=== PATIENT | female | born 1945 | race Caucasian/White ===

== ENCOUNTER 2025-04-01 12:44 | Outpatient (AMB) | payer MEDICARE, OTHER, SELFPAY ==
--- NOTE | 2025-04-01 12:47 | A.OFFVIS_ITS ---
Vital Signs 04/01/25 12:48 Height 5 ft 4 in Weight 103 lb 9.876 oz BMI 17.8 BP 110/60 Blood Pressure Location Lt brachial Position Sitting Pulse 70 Pulse Source Monitor Intake Visit Reasons: [employer]/Dr. Fleming/Cardiac arrhythmia Allergies No Known Allergies Allergy (Verified 04/01/25 12:54) Medication List - Last Reconciled 04/01/25 by Manuel Griffith MD No Known Home Meds HPI Comments Details: The patient is a 79-year-old female presenting with concerns regarding abnormal electrocardiogram findings and significant weight loss. The patient reports that her primary care physician detected an abnormality in her heart sounds, prompting further investigation. She has experienced a weight loss of approximately 15 pounds over the past six months, with her weight dropping to as low as 99 pounds. The patient attributes this weight loss to anxiety related to her son's situation, which has led to a decreased appetite. She denies any history of heart disease, heart attacks, or stent placements. The patient remains physically active, able to walk, ride a bicycle, and climb stairs without experiencing chest pain or pressure. However, she occasionally experiences palpitations, described as her heart racing or thumping hard, but these episodes are brief. There is a significant family history of heart disease, with her father, mother, and both grandfathers having suffered heart attacks. [facility] Family History (Updated 04/01/25 @ 12:56 by Verna Jacobsen) Mother Heart attack Father Heart attack Maternal Grandfather Heart attack Paternal Grandfather Heart attack Social History (Updated 04/01/25 @ 12:57 by Verna Jacobsen) Alcohol intake: current Alcohol intake frequency: a few times a week Alcohol type: beer Patient Tobacco Use Status: Never used Tobacco Review of Systems Const Denies weakness ENT Denies dizziness Card Denies chest pain, Denies chest pain with activity, Denies syncope, Denies rapid heart rate, Denies pedal edema, Denies edema, Denies leg edema, Denies lightheadedness, Reports palpitations, Denies dyspnea, Denies dyspnea on exertion and Denies orthopnea Resp Denies cough, Denies dyspnea and Denies dyspnea on exertion GI Denies hematochezia and Denies change in stool character Musc Denies abnormal gait, Denies muscle cramps, Denies muscle weakness, Denies numbness, Denies radiating pain into limb and Denies tingling Neuro Denies abnormal gait, Denies dizziness, Denies syncope, Denies numbness, Denies tingling and Denies weakness Endo Reports palpitations Physical Exam Vital Signs: Last Vital Signs Pulse 70 04/01/25 12:48 BP 110/60 04/01/25 12:48 BMI result Body Mass Index 17.8 Const General: comfortable and no acute distress Orientation/consciousness: patient oriented x3 HEENT Other: Unremarkable Head: Yes normal to inspection Neck Neck: Yes normal visual inspection Chest Chest palpation & inspection: normal inspection of the chest Resp Auscultation: clear to auscultation bilaterally Cardio Palpation: normal PMI Heart sounds: S1 normal heart sound present, S2 normal heart sound present, no gallops, no murmurs and no rubs GI Palpation (GI): Soft to palpation Back/Spine/Pelvis Other: unremarkable Skin General skin exam: no rashes or lesions noted Neuro General: patient oriented x3 Extrem General: Yes normal to inspection Psych Mental Status: mental status grossly normal Office Procedures EKG Details: EKG with underlying sinus rhythm, sinus arrhythmia, PACs, inferior and anterolateral ST depression; [place] [address]-[id number], Complete Assessment & Plan Assessment & Plan (1) Abnormal EKG: Code(s): R94.31 - Abnormal electrocardiogram [ECG] [EKG] Category: Medical Plan Abnormal EKGs as described above but no accompanying cardiovascular symptoms. She needs evaluation for obstructive CAD. No overt valvular findings on exam. We will start with an echocardiogram and exercise stress perfusion imaging study. Based on the findings, we will decide if she needs a diagnostic catheterization. We will also try to see if there is any old EKG from PCP for comparison. Discussion Notes I discussed with the patient the abnormal findings on her electrocardiogram and the need for further evaluation to rule out any potential cardiac issues. We talked about the importance of undergoing an echocardiogram and a stress test to better understand her heart's condition. I reassured her that despite the abnormal EKG, her lack of symptoms such as chest pain is a positive sign, but further investigation is necessary to ensure her heart health. Patient was informed and verbally consented to the use of an ambient scribe for clinic note documentation during this visit. 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 - Monitor for any new symptoms such as chest pain or changes in exercise tolerance and report them immediately. - Maintain a healthy lifestyle and manage stress to support overall heart health. Coding Level of Care Code New Pt Level 4 (28192) Complex EM visit Add On G2211 Diagnoses Abnormal EKG R94.31 CPT Codes EKG - CPT: 94404-[id number], Complete ([id number])
--- OUTSIDE RECORDS SUMMARY | 2025-04-01 12:47 | XMS_ITS | Clinical Summary ---
Author Organization [facility] Address [address] [place] [address] [place] [phone] Phone Care Team Providers Care Streetcar Motorman Name Role Phone Rain Rand PA-C Unavailable [phone] Laurel Fleming MD Primary Care Provider [phone] Laurel Fleming MD Unavailable Allergies No known active allergies Medications cephalexin (KEFLEX) 500 MG capsule Take 1 capsule (500 mg total) by mouth 3 (three) times a day. 21 capsule 02/21/2025 Active Active Problems Problem Noted Date Diagnosed Date Pelvic pain 11/26/2024 Assessment & Plan (11/26/2024 11:41 AM EDT): Exam is entirely benign. Based on her symptoms I think we should get a pelvic ultrasound. Also rule out UTI. We will follow-up closely. Cardiac arrhythmia 11/26/2024 Assessment & Plan (11/26/2024 11:39 AM EDT): Notable heave which makes me concerned for RVH, the EKG does not distinctly show RVH. I am going to get a chest x-ray to evaluate for any cardiac enlargement. She does not have any chest pain or palpitations or shortness of breath. Referral to cardiology also placed. Weight loss 11/26/2024 Assessment & Plan (11/26/2024 11:40 AM EDT): Unexplained weight loss with thus far a negative laboratory workup. She has not had any imaging, but metabolic causes appear to have been ruled out. I am going to repeat her blood panel, thyroid and get a chest x-ray. 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 DISCUSSION: I discussed overall impression, differential diagnosis and further management in this regard. Patient underwent extensive laboratory evaluation which came back unremarkable. Patient is aware of this diagnosis for over 10 years. Her blood work has been stable over this time. The fact that rest of the CBC has been unremarkable is reassuring and speaks against any underlying hematological disease/bone marrow disease process. RECOMMENDATIONS: No further hematology follow-up is necessary at this time in this regard Thank you very much for allowing to participate in this patient's care Median neuropathy of both upper extremities 02/20 Overview (07/25/2023): Last Assessment & Plan: Patient with a few months of intermittent hand numbness and paresthesias which can wake her from sleep and be associated with a burning sensation. This is also provoked by certain wrist positions and activities and is clinically suggestive of carpal tunnel syndrome. EMG today confirms evidence of bilateral moderately severe median neuropathies at the wrists, which is worse on the right. 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 Encounters Date Type Department Care Team Description 02/21/2025 4:20 PM EDT Office Visit [facility] [address] [place] [address] Laurel Fleming MD Dysuria (Primary Dx) 02/05/2025 6:50 PM EDT Office Visit [facility] at [address] [place] [address] Alexa Porter, JORDAN Dysuria (Primary Dx); Acute cystitis with hematuria from Last 3 Months Immunizations Immunization Administration Dates Next Due Influenza High-Dose Quadrivalent Preservative Fr ee IM 06/09/2023 Influenza Trivalent Adjuvanted Preservative free IM 05/15/2024 Pneumococcal conjugate PCV20 01/24/2024 RSV Vaccine (monovalent, adjuvanted) 08/02/2023 Tdap 05/15/2024 Zoster recombinant 07/03/2024 Family History Medical History Relation Comments Heart attack Father Rheumatic fever Father Heart attack Maternal Grandfather Heart attack Mother Heart attack Paternal Grandfather Dementia Sister vascular Breast cancer Neg Hx Relation Status Comments Brother Alive Father Maternal Grandfather Mother Paternal Grandfather Sister Social History Tobacco Use Types Packs/Day Years Used Date Smoking Tobacco: Never Passive Smoke Exposure: Never Smokeless Tobacco: Never Alcohol Use Standard Drinks/Week Comments Yes 4 (1 standard drink = 0.6 oz pur e alcohol) occasionally Child or Family Care Answer Date Record ed Do you have problems with on e of the following making it difficult for you to work, study, or receive health care? No 01/17/2024 Education Answer Date Recorded Are you interested in more education? Not on kathi e 01/27/2023 Are you concerned about learning? Not on file 01/27/2023 No 01/27/2023 No 01/27/2023 Food Answer Date Recorded Within the past 6 months we worried whether our food would run out before we got money to buy more. Never True 01/17/2024 Within the past 6 months the food we bought just didn't last and we didn't have enough money to get more. Never True Residential Stability Answer Date Recor ded What is your housing situation today? I have timur sing 01/17/2024 How many times have you moved in the past 12 mon ths? One time 01/17/2024 Paying for Meds Answer Date Recorded Do you have trouble paying for medicines? No 01/17/2024 Paying Utility Bills Answer Date Record ed Do you have trouble paying your heating or elect ricity bill? No 01/17/2024 Transportation Answer Date Recorded Has the lack of transportati on kept you from medical appointments or from getting medications? No 01/17/2024 Digital Access Answer Date Recorded No 01/17/2024 Yes 01/17/2024 Reliable internet access at home? Not on file 01/17/2024 Do you have a device (e.g., phone, tablet, computer) with a working camera? Yes 01/17/2024 Intimate Partner Violence Answer Date R ecorded Denied Basic Needs Not on file 07/18/2023 In the past 12 months have y ou been in a relationship with a person who hurts, threatens, or tries to control you? No 07/18/2023 Worried food would run out Not on file 07/18 In the past 12 months have y ou been in a relationship with a person who hurts, threatens, or tries to control you? No 07/18/2023 Comments No Sex and Gender Information Value Date Recorded Sex Assigned at Female 07/25/2023 1:10 PM EST Legal Sex Female 11:21 AM EDT Gender Identity Female 07/25/2023 1:10 PM EST Sexual Orientation Straight 07/25/2023 1: 10 PM EST Last Filed Vital Signs Vital Sign Reading Time Taken Comments Blood Pressure 120/68 02/21/2025 4:04 PM EDT Pulse 77 02/21/2025 4:04 PM EDT Temperature 36.1 C (97 F) 02/05/2025 7:10 PM EDT Respiratory Rate 20 02/05/2025 7:10 PM EDT Oxygen Saturation 98% 02/21/2025 4:04 PM EDT Inhaled Oxygen Concentration - - Weight 47.6 kg (105 lb) 02/05/2025 7:10 PM EDT Height 162.6 cm (5' 4 ) 02/05/2025 7:10 PM EDT Body Mass Index 18.02 02/05/2025 7:10 PM EDT Plan of Treatment Health Maintenance Due Date Last Done Comments HEPATITIS C SCREENING 1963 ZOSTER VACCINES (2 of 2) 08/28/2024 07/03/2024 COVID-19 VACCINE (3 - 2023-2 5 season) 2024 05/15/2024, 06/14/2023 DEPRESSION SCREENING 02/21/2026 02/21/2025, 02/21/2025 LIPID PANEL 08/05/2028 08/05/2023 Adult Td,Tdap Booster 05/15/2034 05/15/2024 RSV VACCINE Completed 08/02/2023 PNEUMOCOCCAL VACCINES (50+ years) Completed 01/24/2024 OSTEOPOROSIS SCREENING INITI AL (ONE-TIME) Completed 11/26/2024 SMOKING STATUS SCREENING (On ce After 26 Yrs) Completed 02/05/2025 HEPATITIS A VACCINES Aged Out No long er eligible based on patient's age to complete this topic HIB VACCINES Aged Out No longer eligi ble based on patient's age to complete this topic MENINGOCOCCAL VACCINES (ACWY) Aged Out No longer eligible based on patient's age to complete this topic MENINGOCOCCAL VACCINES (B) Aged Out N o longer eligible based on patient's age to complete this topic Medical Devices Not on file Procedures Procedure Name Priority Date/Time Associated Diagnosis Comments URINE CULTURE Routine 02/21/2025 4:39 PM EDT Dysuria POCT URINE DIPSTICK Routine 02/21/2025 4 :08 PM EDT URINE CULTURE Routine 02/05/2025 7:15 PM EDT Acute cystitis with hematuria Dysuria POCT URINE DIPSTICK Routine 02/05/2025 7 :07 PM EDT BD DXA AXIAL (SPINE) WITH HIP Routine 11/26/2024 3:27 PM EDT Osteoporosis screening LIPID PANEL Routine 08/05/2023 9:18 AM EST Lipid screening from Last 3 Months or Most Recently Relevant to Health Maintenance Results * (ABNORMAL) Urine Culture (02/21/2025 4:39 PM EDT) Only the most recent of2 resultswithin the time period is included. Special Requests None 02/21/2025 4:39 PM EDT [facility] Urine Culture 10,000 to 100,000 colony forming units per mL MIXED DUANE (3 OR MORE COLONY TYPES) Culture indicates contamination . Please resubmit if necessary.(A) 02/23/2025 7:46 AM EDT [facility] Urine (Urine) 02/21/2025 4:3 9 PM EDT 02/21/2025 6:04 PM EDT us Laurel Fleming MD MICROBIOLOGY - GENERAL ORDERABLE S Final Result Performing Organization Address [facility] Co de Phone Number [facility] [address] [place] [address] * (ABNORMAL) POCT Urine Dipstick (Automated) (02/21/2025 4:08 PM EDT) Only the most recent of2 resultswithin the time period is included. COLOR DK YELLOW [facility] TURBIDITY CLOUDY [facility] GLUCOSE, POCT Negative Negative [facility] KETONE, POCT Negative Negative [facility] OCCULT BLOOD, POCT Negative Negative [facility] SPECIFIC GRAVITY, POCT >1.030 1.001 - 1.030 [facility] ALBUMIN, POCT Negative Negative [facility] Bili Negative Negative [facility] Urobilinogen 0.2 <1.0 [facility] NITRITE, POCT Negative Negative [facility] PH, POCT 5.5 5.0 - 8.0 [facility] WBC SCREEN, POCT Trace(A) Negative [facility] 02/21/2025 4:08 PM EDT 02/21/2025 4:11 PM EDT us Laurel Fleming MD POINT OF CARE TEST ORDERABLES Fi nal Result Performing Organization Address [facility] Co de Phone Number [facility] [address] [place], [place] [id number] [place] [address] * BD DXA AXIAL (SPINE) WITH HIP (11/26/2024 3:27 PM EDT) Anatomical Region Laterality Modality Bone Density Bone Density 11/26/2024 3:16 PM EDT Impressions 11/27/2024 8:20 AM EDT Interpretation: Osteopenia. Narrative 11/27/2024 8:20 AM EDT Referred By: JUDY GODINEZ Indications: Postmenopausal and Estrogen Deficiency Scanner: TLM Com A with serial# of [id number] located at [facility] Bone Density Scan (DXA) 11/26/24 Details of prior DXA scans are available by clicking View Full Report BMD T- Z- Skeletal Site gm/cm2 score score BMD Change Since Prior Scan ------ ----- ----- PA Spine (L1-L4) 0.975 -0.70 1.90 N/A Total Hip (Left) 0.774 -1.40 0.50 N/A Femoral Neck (Left) 0.682 -1.50 0.70 N/A ------ ----- ----- * Denotes significant change when >= 0.022 g/cm2 for the spine, 0.027 g/cm2 for the total hip, 0.029 g/cm2 for the femoral neck. Interpretation: Osteopenia. Technical Quality: Imaging of all sites was of adequate quality. FRAX: Based on FRAX(r) 3.6 ([place] White female), this patient's likelihood of hip fracture is 9.5% and major osteoporotic fracture is 17.2% over the next 10 years. The patient reported the following risks of fracture on a questionnaire: parental history of hip fracture. Reviewed By: Adin Lagunas MD on 11/27/2024 08:20:02 Additional Information: -World Health Organization criteria classify adults based on lowest T-score at PA spine, hip or forearm: Normal (T-score >= -1.0), Osteopenia (T-score between -1 and -2.5), or Osteoporosis (T-score <= -2.5). At [facility], T-scores are compared to peak bone density of a young white gender matched reference population. - For premenopausal women and men under the age of 50, Z-scores (comparison to age, gender, and ethnicity matched reference population) are used: Above expected range for age (Z-score >= 2.0), Within expected range of age (Z-score 1.9 to -1.9), or Below expected range for age (Z-score <= -2.0). - The Bone Health and Osteoporosis Foundation recommends that treatment be considered in men aged more than 50 years and in postmenopausal women with ANY of the following: Prior hip or vertebral fractures; T-score of <= -2.5 at the PA spine or hip; or 10 year fracture probability by FRAX of >= 3% for the hip or >= 20% for major osteoporotic fracture. - The FRAX algorithm (https://www.blanquita.ac.uk/FRAX/tool.aspx) is designed to predict 10-year fracture risk in treatment-naive adults between the ages of 40 and 90. It is not intended to be used in those receiving pharmacologic osteoporosis treatment. - The TBS is derived from the texture of the DXA spine image and has been shown to be related to bone microarchitecture and fracture risk. This data provides information independent of BMD value. It adds to fracture risk assessment with a FRAX adjusted for TBS score. If your patient had a TBS and qualified for a FRAX score, the reported FRAX score has been adjusted for TBS. TBS Score Interpretation 1.350 and greater Normal bone microarchitecture 1.200 to 1.350 Partially degraded bone microarchitecture 1.200 and less Degraded bone microarchitecture - Including race/ethnicity in the generation of T- or Z-scores or in the FRAX calculation is complicated, and currently undergoing active review to ensure that we can give patients the best information on their risk of fracture. - Some prior studies may not be compatible with our comparison software. - Click on View Full Report to see subsequent pages with images and prior bone density results. Procedure Note Adin Lagunas MD - 11/27/2024 Referred By: JUDY GODINEZ Indications: Postmenopausal and Estrogen Deficiency Scanner: TLM Com A with serial# of [id number] located at [facility] Bone Density Scan (DXA) 11/26/24 Details of prior DXA scans are available by clicking View Full Report BMD T- Z- Skeletal Site gm/cm2 score score BMD Change Since Prior Scan ------ ----- PA Spine (L1-L4) 0.975 -0.70 1.90 N/A Total Hip (Left) 0.774 -1.40 0.50 N/A Femoral Neck (Left) 0.682 -1.50 0.70 N/A ------ ----- * Denotes significant change when >= 0.022 g/cm2 for the spine, 0.027g/cm2 for the total hip, 0.029 g/cm2 for the femoral neck. Interpretation: Osteopenia. Technical Quality: Imaging of all sites was of adequate quality. FRAX: Based on FRAX(r) 3.6 ([place] White female), this patient's likelihoodof hip fracture is 9.5% and major osteoporotic fracture is 17.2% over thenext 10 years. The patient reported the following risks of fracture on a questionnaire: parental history of hip fracture. Reviewed By: Adin Lagunas MD on 11/27/2024 08:20:02 Additional Information: -World Health Organization criteria classify adults based on lowestT-score at PA spine, hip or forearm: Normal (T-score >= -1.0), Osteopenia (T-score between -1 and -2.5), or Osteoporosis (T-score <= -2.5). At [facility], T-scores are compared to peak bone density of a young white gender matched reference population. - For premenopausal women and men under the age of 50, Z-scores(comparison to age, gender, and ethnicity matched reference population) are used:Above expected range for age (Z-score >= 2.0), Within expected range of age (Z-score 1.9 to -1.9), or Below expected range for age (Z-score <= -2.0). - The Bone Health and Osteoporosis Foundation recommends that treatment be considered in men aged more than 50 years and in postmenopausal women with ANY of the following: Prior hip or vertebral fractures; T-score of <= -2.5 at the PA spine or hip; or 10 year fracture probability by FRAX of >= 3%for the hip or >= 20% for major osteoporotic fracture. - The FRAX algorithm (https://www.blanquita.ac.uk/FRAX/tool.aspx) is designed to predict 10-year fracture risk in treatment-naive adultsbetween the ages of 40 and 90. It is not intended to be used in those receiving pharmacologic osteoporosis treatment. - The TBS is derived from the texture of the DXA spine image and has been shown to be related to bone microarchitecture and fracture risk. This data provides information independent of BMD value. It adds to fracture risk assessment with a FRAX adjusted for TBS score. If your patient had a TBSand qualified for a FRAX score, the reported FRAX score has been adjusted for TBS. TBS Score Interpretation 1.350 and greater Normal bone microarchitecture 1.200 to 1.350 Partially degraded bone microarchitecture 1.200 and less Degraded bone microarchitecture - Including race/ethnicity in the generation of T- or Z-scores or in the FRAX calculation is complicated, and currently undergoing active review to ensure that we can give patients the best information on their risk of fracture. - Some prior studies may not be compatible with our comparison software. - Click on View Full Report to see subsequent pages with images andprior bone density results. IMPRESSION: Interpretation: Osteopenia. us Judy Godinez SECURITY SHIFT SUPERVISOR IMG BD BONE DENSITY DEXA Fi nal Result * (ABNORMAL) Lipid panel (08/05/2023 9:18 AM EST) HDL 98 mg/dL [facility] Comment: Interpretation <40 mg/dL: Low HDL cholesterol (major risk factor for CHD) Greater than or equal to 60 mg/dL: High HDL cholesterol ( negative risk factor for CHD) HDL - cholesterol is affected by a number of factors, e.g. smoking, excerise, hormones, sex and age. CHOLESTEROL 209 0 - 240 mg/dL [facility] TRIGLYCERIDES 63 30 - 160 mg/dL [facility] LDL 98 50 - 129 mg/dL [facility] Comment: LDL levels in terms of risk for coronary heart disease: <100 mg/dL: Optimal 100-129 mg/dL: Near or above optimal 130-159 mg/dL: Borderline high 160-189 mg/dL: High >190 mg/dL: Very High CARDIAC RISK RATIO 2.1(L) 3.3 - 4.4 C [facility] Blood 08/05/2023 9:18 AM EST 08/05/2023 9:23 AM EST us Judy Godinez SECURITY SHIFT SUPERVISOR LAB BLOOD ORDERABLES Final Result Performing Organization Address City/State/[facility] Co de Phone Number [facility] [address] [place] [address] from Last 3 Months or Most Recently Relevant to Health Maintenance Insurance MEDICARE PART A & B [facility] MEDICARE SUPPLEMENT MEDICARE PART A & B [facility] MEDICARE SUPPLEMENT MEDICARE PART A & B [employer] MEDICARE SUPPLEMENT MEDICARE PART A & B [employer] MEDICARE SUPPLEMENT MEDICARE PART A & B [facility] MEDICARE SUPPLEMENT MEDICARE PART A & B [facility] MEDICARE SUPPLEMENT Care Teams Streetcar Motorman Relationship Specialty Start Date End Date Laurel Fleming MD [address] [place] [phone] PCP - General Family Medicine 10/12/24 Rain Rand PA-C [address] [place] [id number] Physician Sewing Machine Assembler 02/08/24 Laurel Fleming MD [address] [place] [id number] Insurance Assigned Provider 11/25/24 Additional Source Comments The information contained in this document represents components of the legal health record. It is not the complete legal health record.[facility]
[2025-04-01 12:48] VITALS: BP 110/60; PULSE 70; BMI 17.8
== END 2025-04-01 13:35 | disposition home or self-care (01) ==
LOC: HO.HCS 12:45
PROVIDERS: PCP Family Medicine; Visit Provider Internal Medicine
DX: R94.31 Abnormal electrocardiogram [ECG] [EKG] (principal)
CPT/HCPCS: 93010; 99204; G2211

== ENCOUNTER → 2025-04-01 12:44 | Outpatient (BNVA) | payer MEDICARE, OTHER, SELFPAY | PROVIDERS: PCP Family Medicine; Visit Provider Internal Medicine | DX: R94.31 Abnormal electrocardiogram [ECG] [EKG] (principal) | CPT/HCPCS: 93005; 99202 ==

== ENCOUNTER → 2025-04-15 09:49 | Outpatient (REF) | payer MEDICARE, OTHER, SELFPAY ==
--- NOTE | ~2025-04-15 | NM_ITS ---
EXERCISE MYOCARDIAL PERFUSION STUDY INDICATION: Abnormal EKG TECHNIQUE: The patient was brought in for an exercise perfusion study on 04/15/2025. Patient performed exercise as per James protocol and was injected 25 mCi of sestamibi once target heart rate was achieved. Images were obtained using the SPECT gamma camera interlaced with the gating device. Images were obtained in supine position. Resting perfusion study was performed on 04/19/2025. Patient was administered 25 mCi of sestamibi intravenously at rest. Images were then obtained in supine position. Total DLP 68 mGy-cm. Images were processed with the software and compared side to side in short axis, horizontal long axis and vertical long axis views. FINDINGS: Raw aquisition reviewed. The stress perfusion study showed decreased tracer uptake in the basal part of anteroseptal wall. There is improvement with CT attenuation correction and hence could have components of diaphragmatic attenuation artifact. The gated study shows normal LV systolic function with calculated LVEF of 65%. LV cavity is normal in size. The gated study shows decreased thickening in the basal part of inferior septum. Resting study shows mildly reduced tracer uptake in the basal part of inferior septum. No major change with CT attenuation correction. Gating at rest reveals LVEF of 60%. Reduced contractility in the basal inferior septum. The findings are consistent with probable was no defects. Fixed defect in the basal part of inferior septum. NM/NM cardiolite stress test IMPRESSION: 1. Myocardial perfusion imaging study shows no clear evidence of ischemia. Fixed basal inferoseptal defect, which could represent either prior infarct versus artifact. 2. Gated LVEF is 65% during stress and 60% during rest. 3. Transient ischemic dilatation not present. EKG component of the test reported separately. Electronically signed by: Manuel Griffith MD 04/21/2025 12:18 PM EDT
--- NOTE | 2025-04-15 09:54 | CA_ITS ---
Acquisition Time: 2025-04-15 10:17:35 Total Exercise Time: 00:05:20 Test Indications: ABN EKG Medications: SEE H&P Protocol: GENE Max HR: 144 BPM 100% of Pred: 143 BPM Max BP: 164/82 mmHG Max Work Load: 4.6 METS Exercise stress test with exercise 5 mins 20 secs of Gene Protocol held at Stage 1, achieving 97% MPHR, with reports of SOB, no chest pain, with isolated PVCs and frequent PACs with brief 3 beats atrial runs, with normotensive repsonse to exercise. With baseline ST depression inferolaterally and ST elevation in aVR, which became more prominent with exercise, possibly suggestive of ischemia. In recovery, breathing returned to baseline. Nuclear images pending. Test reviewed with Dr. Griffith. Referred By: Manuel Griffith Electronically Signed By: Kt Delacruz
--- OUTSIDE RECORDS SUMMARY | 2025-04-15 10:45 | XMS_ITS | Clinical Summary ---
Author Organization [facility] Address [address] [place] [address] [place] [phone] Phone Care Team Providers Care Web Marketing Intern Name Role Phone Rain Rand PA-C Unavailable [phone] Laurel Fleming MD Primary Care Provider [phone] Laurel Fleming MD Unavailable Allergies No known [...] Encounters Date Type Department Care Team Description 04/09/2025 8:44 AM EDT - 04/09/2025 11:59 PM EDT Hospital Encounter [facility] [address] [place] [address] Laurel Fleming MD Discharge Disposition: Home or Self Care 02/21/2025 4:20 PM EDT Office Visit [facility] [address] [place] [address] Laurel Fleming MD Dysuria (Primary Dx) 02/05/2025 6:50 PM EDT Office Visit [facility] at [address] [place] [address] Alexa Porter CNP Dysuria (Primary Dx); Acute cystitis with hematuria [...] Name Priority Date/Time Associated Diagnosis Comments URINE SEDIMENT Routine 04/09/2025 9:04 AM EDT URINALYSIS W/REFLEX URINE CULTURE Routine 04/09/2025 9:04 AM EDT Pelvic pain URINE CULTURE Routine 02/21/2025 4:39 PM EDT [...] Relevant to Health Maintenance Results * (ABNORMAL) Urinalysis w/reflex Urine Culture (04/09/2025 9:04 AM EDT) COLOR Yellow Yellow [facility] CLARITY Clear [facility] GLUCOSE Negative Negative [facility] BILI Negative Negative [facility] KETONES Negative Negative [facility] SPECIFIC GRAVITY 1.010 1.005 - 1.030 [facility] BLOOD Negative Negative [facility] PH 6.5 5.0 - 8.0 [facility] Protein-UA Negative Negative [facility] NITRITE Negative Negative [facility] Leukocyte esterase, ur Trace(A) Negative [facility] Urine (Urine) 04/09/2025 9:0 4 AM EDT 04/09/2025 9:11 AM EDT us Laurel Fleming MD URINE ORDERABLES Final Result Performing Organization Address City/[facility] Co de Phone Number [address] [address] * (ABNORMAL) Urine sediment (04/09/2025 9:04 AM EDT) WBC 0-4(A) NONE SEEN /hpf [facility] RBC 0-2(A) NONE SEEN /hpf [facility] URINE EPITHELIAL 0-4(A) NONE SEEN [facility] MUCUS Trace(A) NONE SEEN /hpf [facility] BACTERIA Trace(A) NONE SEEN /hpf [facility] 04/09/2025 9:0 4 AM EDT 04/09/2025 9:11 AM EDT Laurel Fleming MD URINE ORDERABLES Final Result Performing Organization Address City/[facility]/ZIP Co de Phone Number [address] [address] * (ABNORMAL) Urine Culture (02/21/2025 4:39 PM EDT) Only the most recent of2 resultswithin the time period is included. Special Requests None 02/21/2025 4:39 PM EDT [facility] Urine Culture 10,000 to 100,000 colony forming units per mL MIXED DUANE (3 OR MORE COLONY TYPES) Culture indicates contamination . Please resubmit if necessary.(A) 02/23/2025 7:46 AM EDT [facility] Urine (Urine) 02/21/2025 4:3 9 PM EDT 02/21/2025 6:04 PM EDT us Laurel Fleming MD MICROBIOLOGY - GENERAL ORDERABLE S Final Result Performing Organization Address City/[facility] Co de Phone Number [facility] [address] [place] [address] * (ABNORMAL) POCT Urine Dipstick (Automated) (02/21/2025 [...] ORDERABLES Fi nal Result Performing Organization Address City/[facility]/ZIP Co de Phone Number [facility] [address] [place] [address], [facility] * BD DXA AXIAL (SPINE) WITH HIP (11/26/2024 3:27 PM EDT) Anatomical Region Laterality Modality Bone Density Bone Density 11/26/2024 3:16 PM EDT Impressions 11/27/2024 8:20 AM EDT Interpretation: Osteopenia. Narrative 11/27/2024 8:20 AM EDT Referred By: JUDY GODINEZ Indications: Postmenopausal and Estrogen Deficiency Scanner: [employer] A with serial# of [id number] located at [facility] Bone Density Scan (DXA) 11/26/24 Details of [...] -2.5), or Osteoporosis (T-score <= -2.5). At [facility], T-scores are compared to peak bone density [...] GODINEZ Indications: Postmenopausal and Estrogen Deficiency Scanner: [employer] with serial# of [id number] located at [facility] Bone Density Scan (DXA) 11/26/24 Details [...] -2.5), or Osteoporosis (T-score <= -2.5). At [facility], T-scores are compared to peak bone density [...] results. IMPRESSION: Interpretation: Osteopenia. us Judy Godinez [employer] IMG BD BONE DENSITY DEXA Fi nal Result * (ABNORMAL) Lipid panel (08/05/2023 9:18 AM EST) HDL 98 mg/dL [facility] Comment: Interpretation <40 mg/dL: Low HDL cholesterol (major risk factor for CHD) Greater than or equal to 60 mg/dL: High HDL cholesterol ( negative risk factor for CHD) HDL - cholesterol is affected by a number of factors, e.g. smoking, excerise, hormones, sex and age. CHOLESTEROL 209 0 - 240 mg/dL [facility] TRIGLYCERIDES 63 30 - 160 mg/dL [facility] LDL 98 50 - 129 mg/dL [facility] Comment: LDL levels in terms of risk for coronary heart disease: <100 mg/dL: Optimal 100-129 mg/dL: Near or above optimal 130-159 mg/dL: Borderline high 160-189 mg/dL: High >190 mg/dL: Very High CARDIAC RISK RATIO 2.1(L) 3.3 - 4.4 C [facility] Blood 08/05/2023 9:18 AM EST 08/05/2023 9:23 AM EST us Judy BOO LAB BLOOD ORDERABLES Final Result [facility] [address] [place] [address] from Last 3 Months or Most Recently Relevant to Health Maintenance Insurance MEDICARE PART A & B [employer] [facility] MEDICARE SUPPLEMENT MEDICARE PART A & B [employer] [facility] MEDICARE SUPPLEMENT MEDICARE PART A & B [facility] MEDICARE SUPPLEMENT MEDICARE PART A & B [facility] MEDICARE SUPPLEMENT MEDICARE PART A & B [facility] MEDICARE SUPPLEMENT MEDICARE PART A & B Member Subscriber Plan / Payer (Ef fective 2013-Present) Name:Tracey Paige Member ID:[id number] Relation to Subscriber:Self Name:Tracey Paige Subscriber ID:[id number] Payer ID:[id number] Group ID:Not on file Type:Medicare Address: [facility] [employer] [facility] [address] [place] [phone] [facility] MEDICARE SUPPLEMENT [facility] Address: [address] [phone] Care Teams Web Marketing Intern Relationship Specialty Start Date End Date Laurel Fleming MD [address] [place] [phone] [email or web address] PCP - General Family Medicine 10/12/24 Rain Rand PA-C [address] [place] [phone] Physician Land Commissioner 02/08/24 Laurel Fleming MD [address] [place] [address] [email or web address] Insurance Assigned Provider 11/25/24 Additional Source Comments The information contained in this document represents components of the legal health record. It is not the complete legal health record.[facility]
== END ==
LOC: HO.CARD 09:49
PROVIDERS: PCP Family Medicine; Visit Provider Internal Medicine
DX: R07.2 Precordial pain (principal); R94.31 Abnormal electrocardiogram [ECG] [EKG]
CPT/HCPCS: 78452; 93017; A9500

== ENCOUNTER → 2025-04-15 09:54 | Outpatient (BNV) | payer MEDICARE, OTHER, SELFPAY | PROVIDERS: PCP Family Medicine | DX: R94.31 Abnormal electrocardiogram [ECG] [EKG] (principal) | CPT/HCPCS: 78452; 93016; 93018 ==

== ENCOUNTER → 2025-04-25 14:42 | Outpatient (REF) | payer MEDICARE, OTHER, SELFPAY ==
--- NOTE | 2025-04-25 14:45 | CA_ITS ---
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 Study Quality: Adequate ECG Rhythm: Bradycardia Conclusions: - 1. Low normal LV ejection fraction 50-55% with possible basal inferior inferolateral wall motion abnormality 2. Mild aortic regurgitation 3. Normal RV systolic pressure 4. No gross pericardial effusion Findings Left Ventricle Normal left ventricular cavity size. There is normal left ventricular wall thickness. The left ventricular systolic function is low normal. The visually estimated ejection fraction is between 50-55%. Spectral Doppler is indicative of a normal filling pattern. Wall Motion Rest Echo Findings The basal inferior and basal inferolateral segments are hypokinetic. All other scored wall segments showed normal motion. Right Ventricle Normal right ventricular cavity size and systolic function. Atria The left atrium is normal in size. There is no evidence of interatrial shunt. The right atrium is normal in size. Aortic Valve Normal aortic valve structure and function. There is no aortic valve stenosis. There is mild aortic valve regurgitation. Mitral Valve There is mild anterior and moderate posterior mitral leaflet thickening. There is trace mitral valve regurgitation. There is no mitral valve stenosis. Pulmonic Valve The pulmonic valve is likely normal. Tricuspid Valve Normal tricuspid valve structure. There is trace tricuspid valve regurgitation. The right ventricular systolic pressure is normal. The right ventricular systolic pressure is 32 mmHg. Normal right atrial pressure. There is no evidence of pulmonary hypertension. Great Vessels All visible segments of the aorta are normal in size. The pulmonary artery was not well visualized. There is no dilatation of the ascending aorta measuring 3.00 cm. Venous The inferior vena cava is normal in size and collapses greater than 50% with inspiration. Pericardium/Pleural There is no evidence of pericardial effusion. Prior Study Comparison No prior study available for comparison. Measurements 2D Linear Measurements IVSd: 0.70 0.6-0.9/0.6-1.0 cm LVIDd: 4.68 3.9-5.3/4.2-5.9 cm LVIDd Index: 3.16 2.4-3.2/2.2-3.1 cm/m2 LVIDs: 3.10 2.0-3.6 cm LVPWd: 0.67 0.7-1.1 cm LA Diam: 3.50 2.7-3.8/3.0-4.0 cm LAIDs Index: 2.36 1.5-2.3 cm/m2 LV Mass: 124.16 67-162/88-224 g LV Mass Index: 83.89 43-95/49-115 g/m2 LVOT Diam: 2.00 3.0+(-)1.3 cm 2D Systolic Function EF 4C: 55.50 >55% EF 2C: 54.90 >55% EF BiP: 54.00 >55% Mitral Valve MV Pk E: 0.64 MV PK A: 0.22 MV Decel Time: 229.00 E/A: 2.90 E'Lateral: 13.70 E'Medial: 7.18 E/E' Med: 9.00 E/E' Lat: 4.70 PHT: 67.00 MVA PHT: 3.28 Decel Sharp: 2.81 Aortic Valve AoV Pk Harpal: 1.02 AoV Pk Grad: 4.00 GIRISH: 2.78 AI Pk Harpal: 4.45 AI Sharp: 2.07 LVOT LVOT Pk Harpal: 0.87 LVOT Mn Harpal: 0.61 LVOT VTI: 0.20 LVOT Pk Grad: 3.00 LVOT Mn Grad: 2.00 LVOT Diam: 2.00 LVOT Area: 3.14 Diastolic Function MV Pk E: 0.64 MV Pk A: 0.22 E/A: 2.90 E'Medial: 7.18 E/E' Med: 9.00 E' Laterial: 13.70 E/E' Lat: 4.70 Right Ventricle TAPSE (mm): 20.70 Tricuspid Valve TR Pk Harpal: 2.70 TR Pk Grad: 29.00 RA Press: 3.00 RVSP: 32.00 Great Vessels Aorta Sinus of Valsalva: 2.90 2.0-3.5 cm Ao Asc: 3.00 2.1-3.4 cm Pulmonary Veins Pulm Vein S/D 0.90 Pulmonary Valve PV Pk Harpal: 0.72 Peak PV Grad: 2.00 Updated in Other Vendor System with Status of Final Dheeraj Beard MD electronically signed on 04/26/2025 12:05:01 PM with status of Final
--- OUTSIDE RECORDS SUMMARY | 2025-04-25 15:55 | XMS_ITS | Encounter Summary ---
Author Organization [facility] Address [address] [place] [address] [place] [phone] Phone Care Team Providers Care Pot Fisher Name Role Phone Allie Godinez JEWELRY MAKER Primary Care Provider [phone] Rain Rand PA-C Unavailable [phone] Laurel Fleming MD Primary Care Provider [phone] Laurel Fleming MD Unavailable Encounter Details Date Type Department Care Team (Late st Contact Info) Description 04/05/2024 Ancillary Orders Located Within [facility] [address] [place] [address] Rain Rand PA-C [address] [place] [address] Neutropenia, unspecified type (Primary Dx); Arthralgia of right elbow Social History Tobacco Use Types Packs/Day Years [...] have you moved in the past 12 tue th? One time 01/17/2024 Paying for Meds Answer [...] Orientation Straight 07/25/2023 1: 10 PM EST documented as of this encounter Plan of Treatment Not on file documented as of this encounter Results * US ABDOMEN LIMITED SINGLE ORGAN (04/05/2024 8:10 AM EDT) Anatomical Region Laterality Modality Abdomen Ultrasound 04/05/2024 10:4 7 AM EDT Impressions 04/05/2024 10:49 AM EDT 1. Normal ultrasound appearance of the spleen. Narrative 04/05/2024 10:49 AM EDT US ABDOMEN LIMITED ONE OR MORE ORGANS INDICATION: Abnormal laboratory values/tenderness. Low white cells associated with weight loss. Assess for splenomegaly. TECHNIQUE: US Abdominal limited (single organ spleen) COMPARISON: None. FINDINGS: Spleen size is normal (7.8 cm longitudinal measurement). No focal lesion detected. No free fluid identified in the left upper quadrant. Procedure Note Ilir Bhatt MD - 04/05/2024 US ABDOMEN LIMITED ONE OR MORE ORGANS INDICATION: Abnormal laboratory values/tenderness. Low white cellsassociated with weight loss. Assess for splenomegaly. TECHNIQUE: US Abdominal limited (single organ spleen) COMPARISON: None. FINDINGS: Spleen size is normal (7.8 cm longitudinal measurement). No focal lesiondetected. No free fluid identified in the left upper quadrant. IMPRESSION: 1. Normal ultrasound appearance of the spleen. us Rain Rand PA-C IMG US ABDOMEN Final Resu lt documented in this encounter Visit Diagnoses Diagnosis Neutropenia, unspecified type Neutropenia, unspecified type- Primary Arthralgia of right elbow documented in this encounter Additional Health Concerns Assessment Noted Time PHQ-2 Depression Total Score: 0 01/17/20 24 4:46 PM EDT documented as of this encounter Care Teams Pot Fisher Relationship Specialty Start Date End Date Allie Godinez FNP [address] [place] [phone] PCP - General Nurse Practitioner 07/25/23 10/11/24 Laurel Fleming MD [address] [place] [address] [email or web address] PCP - General Family Medicine 10/12/24 Rain Rand PA-C [address] [place] [phone] [email or web address] Physician Community Association Manager 02/08/24 Laurel Fleming MD [address] [address] [email or web address] Insurance Assigned Provider 11/25/24 documented as of this encounter Additional Source Comments The information contained in this document represents components of the legal health record. It is not the complete legal health record.[facility]
--- OUTSIDE RECORDS SUMMARY | 2025-04-25 15:55 | XMS_ITS | Encounter Summary ---
Author Organization [facility] Address [address] [place] [phone] Phone Care Team Providers Care Community Education Specialist Name Role Phone Rain Rand PA-C Unavailable [phone] Laurel Fleming MD Primary Care Provider [phone] Laurel Fleming MD Unavailable Reason for Referral * Outpatient Procedure - Closed Specialty Diagnoses / Procedures Referred By Flory garner Referred To Contact Radiology Procedures Outside NM Imaging Report Only [address] [place] [address] Phone: tel: fax: Referral ID Status Reason Start Date Expiration Date Visits Re quested Visits Authorized [id number] Closed 04/23/2025 1 1 Encounter Details Date Type Department Care Team (Late st Contact Info) Description 04/23/2025 Orders Only [address] [place] [address] ProviderIgor MD [facility] [place] [address] Social History Tobacco Use Types Packs/Day Years [...] on file documented as of this encounter Procedures Procedure Name Priority Date/Time Associated Diagnosis Comments OUTSIDE NM IMAGING REPORT ONLY Routine 04/15/2025 4:35 PM EDT documented in this encounter Results * Outside NM Imaging Report Only (04/15/2025 4:35 PM EDT) us Historical Provider MD CELI VASQUEZ ABDOMEN Edited Re sult - Final documented in this encounter Visit Diagnoses Not on filedocumented in this encounter Additional Health Concerns Assessment Noted Time PHQ-9 Depression Total Score: 0 02/22/20 3:25 PM EDT PHQ-2 Depression Total Score: 0 02/22/20 3:25 PM EDT documented as of this encounter Care Teams Community Education Specialist Relationship Specialty Start Date End Date Laurel Fleming MD [address] [place] [phone] [email or web address] PCP - General Family Medicine 10/12/24 Rain Rand PA-C [address] [place] [address] Physician Dining Room Captain 02/08/24 Laurel Fleming MD [address] [place] [phone] [email or web address] Insurance Assigned Provider 11/25/24 documented as of this encounter Additional Source Comments The information contained in this document represents components of the legal health record. It is not the complete legal health record.[facility]
--- OUTSIDE RECORDS SUMMARY | 2025-04-25 15:55 | XMS_ITS | Clinical Summary ---
Author Organization [facility] Address [address] [place] [address] [place] [address] Phone Care Team Providers Care District Manager Primary Care Sales Name Role Phone Rain Rand PA-C Unavailable [phone] Laurel Fleming MD Primary Care Provider [phone] Laurel Fleming MD Unavailable Allergies No known [...] Encounters Date Type Department Care Team Description 04/23/2025 Orders Only [facility] [address] [place] [address] Provider, MD Igor 04/09/2025 8:44 AM EDT - 04/09/2025 11:59 PM EDT Hospital Encounter [facility] Laboratory [address] [place] [address] Laurel Fleming MD Discharge Disposition: Home or Self Care 02/21/2025 4:20 PM EDT Office Visit [facility] [address] [place] [address] Laurel Fleming MD Dysuria (Primary Dx) 02/05/2025 6:50 PM EDT Office Visit [facility] at [address] [place] [address] Alexa Porter CNP Dysuria (Primary Dx); Acute [...] your housing situation today? I have timur whittaker 01/17/2024 How many times have you moved [...] ZOSTER VACCINES (2 of 2) 08/28/2024 07/03/2024 INFLUENZA VACCINE (#1) 2025 , 06/09/2023 COVID-19 VACCINE (3 - 2023-2 5 season) 2025 05/15/2024, 06/14/2023 DEPRESSION SCREENING 02/21/2026 02/21/2025, 02/21/2025 [...] REPORT ONLY Routine 04/15/2025 4:35 PM EDT URINE SEDIMENT Routine 04/09/2025 9:04 AM EDT [...] Recently Relevant to Health Maintenance Results * Outside [place] Imaging Report Only (04/15/2025 4:35 PM EDT) us Historical Provider MD ALATORRE [place] ABDOMEN Edited Re sult - Final * (ABNORMAL) Urinalysis w/reflex Urine Culture (04/09/2025 9:04 AM EDT) COLOR Yellow Yellow [facility] CLARITY Clear [facility] GLUCOSE Negative Negative [facility] BILI Negative Negative [facility] KETONES Negative Negative [facility] SPECIFIC GRAVITY 1.010 1.005 - 1.030 [facility] BLOOD Negative Negative [facility] PH 6.5 5.0 - 8.0 [facility] Protein-UA Negative Negative [facility] NITRITE Negative Negative [facility] Leukocyte esterase, ur Trace(A) Negative [facility] Urine (Urine) 04/09/2025 9:0 4 AM EDT 04/09/2025 9:11 AM EDT Laurel Fleming MD URINE ORDERABLES Final Result [address] [address] * (ABNORMAL) Urine sediment (04/09/2025 9:04 AM EDT) WBC 0-4(A) NONE SEEN /hpf [facility] RBC 0-2(A) NONE SEEN /hpf [facility] URINE EPITHELIAL 0-4(A) NONE SEEN [facility] MUCUS Trace(A) NONE SEEN /hpf [facility] BACTERIA Trace(A) NONE SEEN /hpf [facility] 04/09/2025 9:04 AM EDT 04/09/2025 9:11 AM EDT us Laurel Fleming MD URINE ORDERABLES Final Result Performing Organization Address [facility] Co de Phone Number [address] [address] * (ABNORMAL) Urine Culture (02/21/2025 4:39 PM EDT) Only the most recent of2 resultswithin the time period is included. Special Requests None 02/21/2025 4:39 PM EDT [facility] Urine Culture 10,000 to 100,000 colony forming units per mL MIXED DUANE (3 OR MORE COLONY TYPES) Culture indicates contamination . Please resubmit if necessary.(A) 02/23/2025 7:46 AM EDT [facility] Urine (Urine) 02/21/2025 4:3 9 PM EDT 02/21/2025 6:04 PM EDT us Laurel Fleming MD MICROBIOLOGY - GENERAL ORDERABLE S Final Result Performing Organization Address [facility] Co de Phone Number [address] [address] * (ABNORMAL) POCT Urine Dipstick (Automated) (02/21/2025 [...] OF CARE TEST ORDERABLES Fi nal Result [facility] [address] [place] [address], [facility] * BD DXA AXIAL (SPINE) WITH HIP (11/26/2024 3:27 PM EDT) Anatomical Region Laterality Modality Bone Density Bone Density 11/26/2024 3:16 PM EDT Impressions 11/27/2024 8:20 AM EDT Interpretation: Osteopenia. Narrative 11/27/2024 8:20 AM EDT Referred By: JUDY KHAN Indications: Postmenopausal and Estrogen Deficiency Scanner: [employer] A with serial# of [id number] located at [facility] Bone Density Scan (DXA) 11/26/24 Details [...] -2.5), or Osteoporosis (T-score <= -2.5). At [facility], T-scores are compared to peak bone [...] Lagunas MD - 11/27/2024 Referred By: JUDY KHAN Indications: Postmenopausal and Estrogen Deficiency Scanner: [employer] A with serial[facility] [id number] [facility] (DXA) 11/26/24 Details of [...] -2.5), or Osteoporosis (T-score <= -2.5). At [facility], T-scores are compared to peak bone [...] andprior bone density results. IMPRESSION: Interpretation: Osteopenia. Judy BOO IMG BD BONE DENSITY DEXA Fi nal Result * (ABNORMAL) Lipid panel (08/05/2023 9:18 AM EST) HDL 98 mg/dL [facility] Comment: Interpretation <40 mg/dL: Low HDL cholesterol (major risk factor for CHD) Greater than or equal to 60 mg/dL: High HDL cholesterol ( negative risk factor for CHD) HDL - cholesterol is affected by a number of factors, e.g. smoking, excerise, hormones, sex and age. CHOLESTEROL 209 0 - 240 mg/dL [facility] TRIGLYCERIDES 63 30 - 160 mg/dL [facility] LDL 98 50 - 129 mg/dL [facility] Comment: LDL levels in terms of risk for coronary heart disease: <100 mg/dL: Optimal 100-129 mg/dL: Near or above optimal 130-159 mg/dL: Borderline high 160-189 mg/dL: High >190 mg/dL: Very High CARDIAC RISK RATIO 2.1(L) 3.3 - 4.4 C [facility] Blood 08/05/2023 9:18 AM EST 08/05/2023 9:23 AM EST Judy BOO LAB BLOOD ORDERABLES Final Result [facility] [address] [place] [address] from Last 3 Months or Most Recently Relevant to Health Maintenance Insurance MEDICARE PART A & B [facility] EXTENSION MEDICARE SUPPLEMENT MEDICARE PART A & B [facility] MEDICARE PART A & B Member Subscriber Plan / Payer (Ef fective 2013-Present) Name:Tracey Paige Member ID:[id number] Relation to Subscriber:Self Name:Tracey Paige Subscriber ID:[id number] Payer ID:[id number] Group ID:Not on file Type:Medicare Address: [employer] [facility] [address] [place] [address] [facility] EXTENSION MEDICARE SUPPLEMENT MEDICARE PART A & B [employer] MEDICARE SUPPLEMENT MEDICARE PART A & B [employer] EXTENSION MEDICARE SUPPLEMENT MEDICARE PART A & B [facility] EXTENSION MEDICARE SUPPLEMENT Care Teams District Manager Primary Care Sales Relationship Specialty Start Date End Date Laurel Fleming MD [address] [place] [address] [email or web address] PCP - General Family Medicine 10/12/24 Rain Rand PA-C [address] [place] [phone] [email or web address] Physician Coil Builder 02/08/24 Laurel Fleming MD [address] [place] [address] [email or web address] Insurance Assigned Provider 11/25/24 Additional Source Comments The information contained in this document represents components of the legal health record. It is not the complete legal health record.[facility]
--- OUTSIDE RECORDS SUMMARY | 2025-04-25 15:55 | XMS_ITS | Encounter Summary ---
Author Organization [facility] Address [address] [place] [address] Phone Care Team Providers Care Circuit Recorder Name Role Phone Allie Godinez Angelina SLURRY TANK OPERATOR Primary Care Provider [phone] Rain Rand PA-C Unavailable [phone] Laurel Fleming MD Primary Care Provider [phone] Luarel Fleming MD Unavailable Encounter Details Date Type Department Care Team (Late st Contact Info) Description 07/25/2023 Procedure Pass [facility] [address] [place] [address] Social History Tobacco Use Types Packs/Day Years [...] work, study, or receive health care? No 07/18/2023 Education Answer Date Recorded Are you interested in more education? Not on kathi e 01/27/2023 Are you concerned about learning? Not on file 01/27/2023 No 01/27/2023 No 01/27/2023 Food Answer Date Recorded Within the past 6 months we worried whether our food would run out before we got money to buy more. Never True 07/18/2023 Within the past 6 months the food we bought just didn't last and we didn't have enough money to get more. Never True Residential Stability Answer Date Recor ded What is your housing situation today? I have timur whittaker 07/18/2023 How many times have you moved in the past 12 tue ths? One time 07/18/2023 Paying for Meds Answer Date Recorded Do you have trouble paying for medicines? No 07/18/2023 Paying Utility Bills Answer Date Record ed Do you have trouble paying your heating or elect ricity bill? No 07/18/2023 Transportation Answer Date Recorded Has the lack of transportati on kept you from medical appointments or from getting medications? No 07/18/2023 Digital Access Answer Date Recorded No 01/27/2023 No 01/27/2023 Reliable internet access at home? Not on file 01/27/2023 Device with a working camera? Not on file Intimate Partner Violence Answer Date R ecorded [...] on file documented as of this encounter Visit Diagnoses Not on filedocumented in this encounter Additional Health Concerns Infection Onset Date Last Indicated Resolved Time CoV-Risk Comment:Per Ambulatory Triage Form 01/30/2024 01/30/202401/29 2:55 PM EDT COVID-19 01/30/2024 01/30/2024 02/20/2024 1:21 AM EDT Assessment Noted Time PHQ-2 Depression Total Score: 0 07/18/20 12:45 PM EST documented as of this encounter Care Teams Circuit Recorder Relationship Specialty Start Date End Date Allie GodinezEMA [address] [place] [address] [email or web address] PCP - General Nurse Practitioner 07/25/23 10/11/24 Laurel Fleming MD [address] [place] [address] PCP - General Family Medicine 10/12/24 Rain Rand PA-C [address] [place] [address] Physician Purse Framer 02/08/24 Laurel Fleming MD [address] [place] [phone] [email or web address] Insurance Assigned Provider 11/25/24 documented as of this encounter Additional Source Comments The information contained in this document represents components of the legal health record. It is not the complete legal health record.[facility]
== END ==
LOC: HO.CARD 14:42
PROVIDERS: PCP Family Medicine; Visit Provider Internal Medicine
DX: I25.10 Atherosclerotic heart disease of native coronary artery without angina pectoris (principal); R94.31 Abnormal electrocardiogram [ECG] [EKG]
CPT/HCPCS: 93306

== ENCOUNTER → 2025-04-25 14:45 | Outpatient (BNV) | payer MEDICARE, OTHER, SELFPAY | PROVIDERS: PCP Family Medicine; Visit Provider Internal Medicine Cardiovascular Disease | DX: I35.1 Nonrheumatic aortic (valve) insufficiency (principal); I25.10 Atherosclerotic heart disease of native coronary artery without angina pectoris | CPT/HCPCS: 93306 ==

== ENCOUNTER 2025-05-02 14:40 | Outpatient (AMB) | payer MEDICARE, OTHER, SELFPAY ==
--- NOTE | 2025-05-02 14:52 | MHC.OFFVIS ---
Vital Signs 05/02/25 14:55 Height 5 ft 4 in Weight 107 lb 9.369 oz BMI 18.5 BP 130/64 Blood Pressure Location Lt brachial Position Sitting Pulse 64 Pulse Source Pulse Oximeter Intake Visit Reasons: follow up mibi echo Sawmill Relief Worker Required: No Accompanied by: Self / Same As Patient Allergies No Known Allergies Allergy (Verified 04/01/25 12:54) Medication List - Last Reconciled 05/02/25 by Manuel Griffith MD No Known Home Meds HPI Comments Details: Tracey returns for follow-up. Recently seen in consultation regarding an abnormal EKG. Patient herself has got no cardiac history and no cardiac symptoms. She is physically quite active and able to walk, ride a bicycle, climbs stairs and she has got no symptoms like chest pain or shortness of breath. Occasional feeling of heart palpitations. Otherwise, she has lost about 15 lb in weight over the last several months. She believes it is because of weight loss related to anxiety from her son situation. There is a significant family history of heart disease, with her father, mother, and both grandfathers having suffered heart attacks. [facility] Family History Mother Heart attack Father Heart attack Maternal Grandfather Heart attack Paternal Grandfather Heart attack Social History Alcohol intake: current Alcohol intake frequency: a few times a week Alcohol type: beer Patient Tobacco Use Status: Never used Tobacco Review of Systems Const Denies chills, Denies fatigue, Denies fever(s), Denies frequent falls, Denies weakness, Denies weight gain and Denies weight loss ENT Denies dizziness Card Denies chest pain, Denies leg edema, Denies lightheadedness, Denies palpitations, Denies dyspnea and Denies dyspnea on exertion Resp Denies cough, Denies dyspnea and Denies dyspnea on exertion GI Denies hematochezia Musc Denies abnormal gait, Denies muscle weakness, Denies numbness, Denies radiating pain into limb and Denies tingling Neuro Denies abnormal gait, Denies dizziness, Denies frequent falls, Denies numbness, Denies tingling and Denies weakness Endo Denies fatigue and Denies palpitations Physical Exam Vital Signs: Last Vital Signs Pulse 64 05/02/25 14:55 BP 130/64 05/02/25 14:55 BMI result Body Mass Index 18.5 Const General: comfortable and no acute distress Orientation/consciousness: patient oriented x3 HEENT Other: Unremarkable Head: Yes normal to inspection Neck Neck: Yes normal visual inspection Chest Chest palpation & inspection: normal inspection of the chest Resp Auscultation: clear to auscultation bilaterally Cardio Palpation: normal PMI Heart sounds: S1 normal heart sound present, S2 normal heart sound present, no gallops, no murmurs and no rubs GI Palpation (GI): Soft to palpation Back/Spine/Pelvis Other: unremarkable Skin General skin exam: no rashes or lesions noted Neuro General: patient oriented x3 Extrem General: Yes normal to inspection Psych Mental Status: mental status grossly normal Assessment & Plan Assessment & Plan (1) Abnormal EKG: Code(s): R94.31 - Abnormal electrocardiogram [ECG] [EKG] Category: Medical (2) 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 In the echocardiogram, low normal LVEF, 50-55%. Question of basal inferior/inferolateral wall motion abnormality. In the perfusion imaging, no ischemia. Fixed basal inferoseptal defect, thought to be from prior infarct or artifact. Overall, looking at the above data, she probably has underlying coronary disease. Could have right coronary or dominant circumflex stenosis. However, clinically she has got absolutely no angina unable to maintain a normal lifestyle. Hence we will treat this conservatively for now. We discussed this in detail. In case she develops symptoms like chest pain, we will need a diagnostic catheterization. We discussed about that as well. She can take low-dose aspirin. We will obtain lipids from PCP and consider starting statins. Follow up in 3-4 months. Coding Level of Care Code Est Pt Level 4 (11744) Complex EM visit Add On G2211 Diagnoses Abnormal EKG R94.31 Atherosclerotic cardiovascular disease I25.10
[2025-05-02 14:55] VITALS: BP 130/64; PULSE 64; BMI 18.5
--- OUTSIDE RECORDS SUMMARY | 2025-05-02 18:19 | XMS_ITS | Encounter Summary ---
Author Organization [facility] Address [address] [place] [address] Phone Care Team Providers Care Silk Screen Processor Name Role Phone Rain Rand PA-C Unavailable [phone] Laurel Fleming MD Primary Care Provider [phone] Laurel Fleming MD Unavailable Reason for Referral * Outpatient Procedure - Closed Specialty Diagnoses / Procedures Referred By Flory garner Referred To Contact Radiology Procedures Outside [place] Imaging Report Only [address] [place] [address] Phone: tel: fax: Referral ID Status Reason Start Date Expiration Date Visits Re quested Visits Authorized [id number] Closed 04/23/2025 1 1 Encounter Details Date Type Department Care Team (Late st Contact Info) Description 04/23/2025 Orders Only [address] [place] [address] ProviderIgor MD [facility] [place] [address] Social History Tobacco Use Types [...] documented as of this encounter Care Teams Silk Screen Processor Relationship Specialty Start Date End Date Laurel Fleming MD [address] [place] [phone] [email or web address] PCP - General Family Medicine 10/12/24 Rain Rand PA-C [address] [place] [address] Physician Marine Steam Fitter 02/08/24 Laurel Fleming MD [address] [place] [address] [email or web address] Insurance Assigned Provider 11/25/24 documented as of this encounter Additional Source Comments The information contained in this document represents components of the legal health record. It is not the complete legal health record.[facility]
--- OUTSIDE RECORDS SUMMARY | 2025-05-02 18:19 | XMS_ITS | Encounter Summary ---
Author Organization [facility] Address [address] [place] [address] [place] [address] Phone Care Team Providers Care Edger Operator Name Role Phone Allie Godinez SHOTBLAST OPERATOR Primary Care Provider [phone] Rain Rand PA-C Unavailable [phone] Laurel Fleming MD Primary Care Provider [phone] Laurel Fleming MD Unavailable Encounter Details Date Type Department Care Team (Late st Contact Info) Description 04/05/2024 Ancillary Orders [facility] [address] [place] [address] Rain Rand PA-C [address] [place] [address] Neutropenia, unspecified type (Primary Dx); Arthralgia of [...] documented as of this encounter Care Teams Edger Operator Relationship Specialty Start Date End Date Allie Godinez FNP [address] [place] [phone] [email or web address] PCP - General Nurse Practitioner 07/25/23 10/11/24 Laurel Fleming MD [address] [place] [phone] [email or web address] PCP - General Family Medicine 10/12/24 Rain Rand PA-C [address] [place] [phone] [email or web address] Physician Cupola Charger Insulation 02/08/24 Laurel Fleming MD [address] [address] [email or web address] Insurance Assigned Provider 11/25/24 documented as of this encounter Additional Source Comments The information contained in this document represents components of the legal health record. It is not the complete legal health record.[facility]
--- OUTSIDE RECORDS SUMMARY | 2025-05-02 18:19 | XMS_ITS | Encounter Summary ---
Author Organization [facility] Address [address] [facility] [address] [place] [address] Phone Care Team Providers Care Diesel Technician Name Role Phone Rain Rand PA-C Unavailable [phone] Laurel Fleming MD Primary Care Provider [phone] Laurel Fleming MD Unavailable Reason for Visit * Reason Onset Date Comments [facility] 05/02/2025 Encounter Details Date Type Department Care Team (Late st Contact Info) Description 05/02/2025 Telephone [place] [facility] [address] [facility] [address] [place] [address] Laurel Fleming MD [address] [facility] [address] [place] [address] [email or web address] [facility] Social History Tobacco Use Types Packs/Day Years [...] the past 12 tue ths? One time 01/17/2024 Paying for Meds [...] PM EST documented as of this encounter Progress Notes * Maricruz De Leon - 05/02/2025 4:02 PM EDT Yvette from [facility] on triage line requesting recent labs including lipid to [phone] CSS Agent (Please do not reply to this user, as this inbox is not monitored. Thank you.) Thank you. documented in this encounter Plan of Treatment Not on file documented as of this encounter Visit Diagnoses Not on filedocumented in this encounter Additional Health Concerns Assessment Noted Time PHQ-9 Depression Total Score: 0 02/22/20 3:25 PM EDT PHQ-2 Depression Total Score: 0 02/22/20 3:25 PM EDT documented as of this encounter Care Teams Diesel Technician Relationship Specialty Start Date End Date Laurel Fleming MD [address] [address] [email or web address] PCP - General Family Medicine 10/12/24 Rain Rand PA-C [address] [place] [address] Physician Printer Slotter Feeder 02/08/24 Laurel Fleming MD [address] [address] [email or web address] Insurance Assigned Provider 11/25/24 documented as of this encounter Additional Source Comments The information contained in this document represents components of the legal health record. It is not the complete legal health record.[facility]
--- OUTSIDE RECORDS SUMMARY | 2025-05-02 18:19 | XMS_ITS | Clinical Summary ---
Author Organization [facility] Address [address] [place] [address] [place] [phone] Phone Care Team Providers Care Fan Mail Editor Name Role Phone Rain Rand PA-C Unavailable [phone] Laurel Fleming MD Primary Care Provider [phone] Laurel Fleming MD Unavailable Allergies No known [...] Encounters Date Type Department Care Team Description 05/02/2025 Telephone [facility] Primary [facility] [address] [place] [address] Laurel Fleming MD [place] [facility] 04/23/2025 Orders Only [facility] [address] [place] [address] Provider, MD Igor 04/09/2025 8:44 AM EDT - 04/09/2025 11:59 PM EDT Hospital Encounter [facility] [address] [place] [address] Laurel Fleming MD Discharge Disposition: Home or Self Care 02/21/2025 4:20 PM EDT Office Visit [facility] [address] [place] [address] Laurel Fleming MD Dysuria (Primary Dx) 02/05/2025 6:50 PM EDT Office Visit [facility] [address] [place] [address] Alexa Porter CNP Dysuria (Primary Dx); Acute [...] (04/09/2025 9:04 AM EDT) COLOR Yellow Yellow [facility] CLARITY Clear [facility] GLUCOSE Negative Negative [facility] BILI Negative Negative [facility] KETONES Negative Negative [facility] SPECIFIC GRAVITY 1.010 1.005 - 1.030 [facility] BLOOD Negative Negative [facility] PH 6.5 5.0 - 8.0 [facility] Protein-UA Negative Negative [facility] NITRITE Negative Negative [facility] Leukocyte esterase, ur Trace(A) Negative [facility] Urine (Urine) 04/09/2025 9:0 4 AM EDT 04/09/2025 9:11 AM EDT us Laurel Fleming MD URINE ORDERABLES Final Result [facility] [address] [place] [address] * (ABNORMAL) Urine sediment (04/09/2025 9:04 AM EDT) WBC 0-4(A) NONE SEEN /hpf [facility] RBC 0-2(A) NONE SEEN /hpf [facility] URINE EPITHELIAL 0-4(A) NONE SEEN [facility] MUCUS Trace(A) NONE SEEN /hpf [facility] BACTERIA Trace(A) NONE SEEN /hpf [facility] 04/09/2025 9:04 AM EDT 04/09/2025 9:11 AM EDT Laurel Fleming MD URINE ORDERABLES Final Result Performing Organization Address [facility] de Phone Number [address] [address] * (ABNORMAL) Urine Culture (02/21/2025 4:39 PM EDT) Only the most recent of2 resultswithin the time period is included. Special Requests None 02/21/2025 4:39 PM EDT [facility] Urine Culture 10,000 to 100,000 colony forming units per mL MIXED DUANE (3 OR MORE COLONY TYPES) Culture indicates contamination . Please resubmit if necessary.(A) 02/23/2025 7:46 AM EDT [facility] Urine (Urine) 02/21/2025 4:3 9 PM EDT 02/21/2025 6:04 PM EDT Laurel Fleming MD MICROBIOLOGY - GENERAL ORDERABLE S Final Result Performing Organization Address [facility] de Phone Number [address] [address] * (ABNORMAL) POCT Urine Dipstick (Automated) (02/21/2025 [...] Fi nal Result [facility] [address] [place] [address], [facility] * BD DXA AXIAL (SPINE) WITH HIP (11/26/2024 3:27 PM EDT) Anatomical Region Laterality Modality Bone Density Bone Density 11/26/2024 3:16 PM EDT Impressions 11/27/2024 8:20 AM EDT Interpretation: Osteopenia. Narrative 11/27/2024 8:20 AM EDT Referred By: JUDY GODINEZ Indications: Postmenopausal and Estrogen Deficiency Scanner: Stemgent A with serial# of [id number] located at [facility] Bone Density Scan (DXA) 11/26/24 Details of [...] -2.5), or Osteoporosis (T-score <= -2.5). At [facility], T-scores are compared to peak bone density [...] GODINEZ Indications: Postmenopausal and Estrogen Deficiency Scanner: Stemgent A with serial# of [id number] located at [facility] Bone Density Scan (DXA) 11/26/24 Details of [...] -2.5), or Osteoporosis (T-score <= -2.5). At [facility], T-scores are compared to peak bone density [...] results. IMPRESSION: Interpretation: Osteopenia. us Judy Godinez STUD DAIRY CATTLE FARMER IMG BD BONE DENSITY DEXA Fi nal Result * (ABNORMAL) Lipid panel (08/05/2023 9:18 AM EST) HDL 98 mg/dL [facility] Comment: Interpretation <40 mg/dL: Low HDL cholesterol (major risk factor for CHD) Greater than or equal to 60 mg/dL: High HDL cholesterol ( negative risk factor for CHD) HDL - cholesterol is affected by a number of factors, e.g. smoking, excerise, hormones, sex and age. CHOLESTEROL 209 0 - 240 mg/dL [facility] TRIGLYCERIDES 63 30 - 160 mg/dL [facility] LDL 98 50 - 129 mg/dL [facility] Comment: LDL levels in terms of risk for coronary heart disease: <100 mg/dL: Optimal 100-129 mg/dL: Near or above optimal 130-159 mg/dL: Borderline high 160-189 mg/dL: High >190 mg/dL: Very High CARDIAC RISK RATIO 2.1(L) 3.3 - 4.4 C [facility] Blood 08/05/2023 9:18 AM EST 08/05/2023 9:23 AM EST us Judy Godinez STUD DAIRY [employer] LAB BLOOD ORDERABLES Final Result Performing Organization Address City/State/[facility] Co de Phone Number [facility] [address] [place] [address] from Last 3 Months or Most Recently Relevant to Health Maintenance Insurance MEDICARE PART A & B [facility] EXTENSION MEDICARE SUPPLEMENT MEDIC[facility] SUPPLE[facility] EXTENSION MEDICARE SUPPLEMENT MEDICARE PART A & B [employer] MEDICARE SUPPLEMENT MEDICARE PART A & B [facility] MEDICARE SUPPLEMENT MEDICARE PART A & B [facility] MEDICARE SUPPLEMENT Care Teams Fan Mail Editor Relationship Specialty Start Date End Date Laurel Fleming MD [address] [place] [phone] [email or web address] PCP - General Family Medicine 10/12/24 Rain Rand PA-C [address] [place] [phone] [email or web address] Physician Software Development Test Engineer 02/08/24 Laurel Fleming MD [address] [place] [phone] [email or web address] Insurance Assigned Provider 11/25/24 Additional Source Comments The information contained in this document represents components of the legal health record. It is not the complete legal health record.[facility]
--- OUTSIDE RECORDS SUMMARY | 2025-05-02 18:19 | XMS_ITS | Encounter Summary ---
Author Organization [facility] Address [address] [place] [phone] Phone Care Team Providers Care Human Factors Advisor Lead Name Role Phone Allie Godinez Angelina ELECTROPLATING WORKER Primary Care Provider [phone] Rain Rand PA-C Unavailable [phone] Laurel Fleming MD Primary Care Provider [phone] Laurel Fleming MD Unavailable Encounter Details Date Type Department Care Team (Late st Contact Info) Description 07/25/2023 Procedure Pass [facility] [address] [place] [address] Social History Tobacco Use Types Packs/Day Years [...] documented as of this encounter Care Teams Human Factors Advisor Lead Relationship Specialty Start Date End Date Allie GodinezEMA [address] [place] [phone] [email or web address] PCP - General Nurse Practitioner 07/25/23 10/11/24 Laurel Fleming MD [address] [place] [phone] PCP - General Family Medicine 10/12/24 Rain Rand PA-C [address] [place] [phone] Physician Upsetter Helper 02/08/24 Laurel Fleming MD [address] [place] [phone] [email or web address] Insurance Assigned Provider 11/25/24 documented as of this encounter Additional Source Comments The information contained in this document represents components of the legal health record. It is not the complete legal health record.[facility]
== END 2025-05-02 15:09 | disposition home or self-care (01) ==
LOC: HO.HCS 14:41
PROVIDERS: PCP Family Medicine; Visit Provider Internal Medicine
DX: R94.31 Abnormal electrocardiogram [ECG] [EKG] (principal); I25.10 Atherosclerotic heart disease of native coronary artery without angina pectoris
CPT/HCPCS: 99214; G2211

== ENCOUNTER → 2025-05-02 14:40 | Outpatient (BNVA) | payer MEDICARE, OTHER, SELFPAY | PROVIDERS: PCP Family Medicine; Visit Provider Internal Medicine | DX: R94.31 Abnormal electrocardiogram [ECG] [EKG] (principal); I25.10 Atherosclerotic heart disease of native coronary artery without angina pectoris | CPT/HCPCS: 99212 ==

== ENCOUNTER 2025-08-12 10:24 | Outpatient (AMB) | payer MEDICARE, OTHER, SELFPAY ==
[2025-08-12 10:27] VITALS: BP 130/68; PULSE 58; BMI 18.2
--- NOTE | 2025-08-12 10:27 | MHC.OFFVIS ---
Vital Signs 08/12/25 10:27 Height 5 ft 4 in Weight 105 lb 13.15 oz BMI 18.2 BP 130/68 Blood Pressure Location Lt brachial Position Sitting Pulse 58 Pulse Source Pulse Oximeter Intake Visit Reasons: 3m follow up Allergies No Known Allergies Allergy (Verified 04/01/25 12:54) Medication List - Last Reconciled 08/12/25 by Manuel Griffith MD No Known Home Meds HPI Comments Details: Tracey returns for follow-up. Recently seen in consultation regarding an abnormal EKG. Patient herself has got no cardiac history and no cardiac symptoms. She is physically quite active and able to walk, ride a bicycle, climbs stairs and she has got no symptoms like chest pain or shortness of breath. Occasional feeling of heart palpitations. Otherwise, she has lost about 15 lb in weight over the last several months. She believes it is because of weight loss related to anxiety from her son situation. There is a significant family history of heart disease, with her father, mother, and both grandfathers having suffered heart attacks. Since last seen, no new complaints. [facility] Family History (Reviewed 05/02/25 @ 14:55 by Yvette Szymanski [facility]) Mother Heart attack Father Heart attack Maternal Grandfather Heart attack Paternal Grandfather Heart attack Social History (Reviewed 05/02/25 @ 14:55 by Yvette Szymansik [facility]) Alcohol intake: current Alcohol intake frequency: a few times a week Alcohol type: beer Patient Tobacco Use Status: Never used Tobacco Review of Systems Const Denies weakness ENT Denies dizziness Card Denies chest pain, Denies chest pain with activity, Denies syncope, Denies rapid heart rate, Denies pedal edema, Denies edema, Denies leg edema, Denies lightheadedness, Denies palpitations, Denies dyspnea, Denies dyspnea on exertion and Denies orthopnea Resp Denies cough, Denies dyspnea and Denies dyspnea on exertion GI Denies hematochezia and Denies change in stool character Musc Denies abnormal gait, Denies muscle cramps, Denies muscle weakness, Denies numbness, Denies radiating pain into limb and Denies tingling Neuro Denies abnormal gait, Denies dizziness, Denies syncope, Denies numbness, Denies tingling and Denies weakness Endo Denies palpitations Physical Exam Vital Signs: Last Vital Signs Pulse 58 08/12/25 10:27 BP 130/68 08/12/25 10:27 BMI result Body Mass Index 18.2 Const General: comfortable and no acute distress Orientation/consciousness: patient oriented x3 HEENT Other: Unremarkable Head: Yes normal to inspection Neck Neck: Yes normal visual inspection Chest Chest palpation & inspection: normal inspection of the chest Resp Auscultation: clear to auscultation bilaterally Cardio Palpation: normal PMI Heart sounds: S1 normal heart sound present, S2 normal heart sound present, no gallops, no murmurs and no rubs GI Palpation (GI): Soft to palpation Back/Spine/Pelvis Other: unremarkable Skin General skin exam: no rashes or lesions noted Neuro General: patient oriented x3 Extrem General: Yes normal to inspection Psych Mental Status: mental status grossly normal Assessment & Plan Assessment & Plan (1) Abnormal EKG: Code(s): R94.31 - Abnormal electrocardiogram [ECG] [EKG] Category: Medical (2) Atherosclerotic cardiovascular disease: Code(s): I25.10 - Atherosclerotic heart disease of [place] coronary artery without angina pectoris Category: Medical Plan In the baseline EKG, inferior/anterolateral ST depression. In the echocardiogram, low normal LVEF, 50-55%. Question of basal inferior/inferolateral wall motion abnormality. In the perfusion imaging, no ischemia. Fixed basal inferoseptal defect, thought to be from prior infarct or artifact. Overall, based on the above data, suspect underlying coronary artery disease. Clinically, she has got no overt anginal type symptoms but she is very concerned if she indeed has any significant coronary disease that needs more aggressive care. Hence we discussed both options including coronary CTA versus diagnostic catheterization. After reviewing both, she stated that she would rather start with something noninvasive and hence we agreed on starting with a coronary CTA. Based on the quality of the study as well as any findings like hemodynamically significant coronary disease, may need a diagnostic catheterization. She agrees with this plan. In the interim, take low-dose aspirin. Lipids are reasonable but based on the coronary CTA we may still start some statins. If any concerning symptoms from now till the testing is completed, patient will need to seek emergency care and we discussed about that specifically. She understands. Follow up after the coronary CTA. Discusssion notes: I discussed with the patient the need for further investigation of her coronary status, acknowledging her current lack of symptoms and excellent exercise tolerance. We reviewed two options: a coronary CT angiogram (CTA) and a cardiac catheterization. I explained that catheterization provides the most definitive look at blockages but is an invasive procedure, whereas the CTA is less intrusive. I also clarified that a calcium score test would not be beneficial due to her age, as it would be expected to be positive. We discussed that if the CTA were to show significant abnormalities, it would then lead to a catheterization. The patient expressed a preference for the non-invasive approach, and we mutually agreed to proceed with the coronary CTA, with the understanding that there may be scheduling delays. I advised her to continue taking baby aspirin and to avoid overly strenuous exercise, while instructing her to seek emergency care for any chest pain or pressure. She will follow up here in 3 months. Patient was informed and verbally consented to the use of an ambient scribe for clinic note documentation during this visit. Orders: Orders Basic Metabolic Panel Today I25.10 - Atherosclerotic heart disease of [place] coronary artery without angina pectoris CT Cardiac Coronary Angio Today I25.10 - Atherosclerotic heart disease of [place] coronary artery without angina pectoris Patient Instructions: - We will order a coronary CT scan to get a better look at the arteries in your heart. - Please be aware that it might take two to three months to get an appointment for this scan. - You will need to have some blood work done before this test. - Continue taking a baby aspirin. - Avoid very strenuous physical activity until we have the results of your scan, but it is okay to continue with gentle exercise. - If you develop any new or worsening chest pain or pressure, call 911 for emergency help immediately. Coding Level of Care Code Est Pt Level 4 (72289) Add On Problem Visit Only Diagnoses Abnormal EKG R94.31 Atherosclerotic cardiovascular disease I25.10
== END 2025-08-12 10:48 | disposition home or self-care (01) ==
LOC: HO.HCS 10:24
PROVIDERS: PCP Family Medicine; Visit Provider Internal Medicine
DX: R94.31 Abnormal electrocardiogram [ECG] [EKG] (principal); I25.10 Atherosclerotic heart disease of native coronary artery without angina pectoris
CPT/HCPCS: 99214; G2211

== ENCOUNTER → 2025-08-12 10:24 | Outpatient (BNVA) | payer MEDICARE, OTHER, SELFPAY | PROVIDERS: PCP Family Medicine; Visit Provider Internal Medicine | DX: R94.31 Abnormal electrocardiogram [ECG] [EKG] (principal); I25.10 Atherosclerotic heart disease of native coronary artery without angina pectoris | CPT/HCPCS: 99212 ==